=== PATIENT | female | born 1950 | race African-American/Black ===

== ENCOUNTER → 2017-01-20 | Outpatient (CLI) | payer MEDICARE ==
[~2017-01-20] MED LIST: LISINOPRIL 20MG20 MG PO
--- NOTE | 2017-01-20 15:54 | RADIOLOGY REPORT PS360 ---
ANKLE-RT-3 VIEWS HISTORY: Pain and swelling RT FOOT/ANKLE PAIN ORDERING PHYSICIAN: Josi Guzman APRN PATIENT AGE: 66 years COMPARISON: None FINDINGS: No fracture or dislocation. No lytic or blastic change. There is normal mineralization.. There is moderate soft tissue swelling both medially and laterally at the ankle with some hyperostosis along the medial malleolus and posterior distal tibia region. There is pes planus. IMPRESSION: Hyperostosis along the medial and posterior distal tibia could be reflection of old injury. Generalized soft tissue swelling. No acute finding.
--- NOTE | 2017-01-20 16:16 | RADIOLOGY REPORT PS360 ---
FOOT-RT-3 VIEWS HISTORY: RT FOOT/ANKLE PAIN ORDERING PHYSICIAN: Josi Guzman APRN PATIENT AGE: 66 years COMPARISON: None FINDINGS: No fracture or dislocation. No lytic or blastic change. There is normal mineralization.. There is pes planus. Small calcaneal spurs noted. No lytic or blastic change. No significant degenerative change. There is mild lateral angulation of the distal aspect of the proximal phalanx of the great toe which could be due to old injury. IMPRESSION: 1. No acute finding. 2. Pes planus. 3. Old fracture suspected of the proximal phalanx of the great toe
== END ==
LOC: RAD 14:41
DX: M79.671 Pain in right foot (principal); M25.571 Pain in right ankle and joints of right foot